=== PATIENT | female | born 1950 | race Caucasian/White ===

== ENCOUNTER 2024-12-15 13:15 | Inpatient (IN) ==
[2025-01-02 12:24] LABS: Basophils # (Auto) 0.05 K/mcL (0.00-0.30); Basophils % (Auto) 0.5 % (0.0-2.0); Eosinophils # (Auto) 0.39 K/mcL (0.00-0.70); Eosinophils % (Auto) 3.7 % (0.0-7.0); Hematocrit 42.2 % (34.1-44.9); Hemoglobin 13.6 g/dL (11.2-15.7); Lymphocytes # (Auto) 2.41 K/mcL (1.50-4.80); Lymphocytes % (Auto) 22.9 % (15.5-49.0); Mean Cell Volume 100.7 fL (80.0-100.0); Mean Corpuscular HGB Conc 32.2 g/dL (31.0-36.0); Mean Platelet Volume 8.3 fL (8.8-12.5); Monocytes # (Auto) 0.83 K/mcL (0.10-0.90); Monocytes % (Auto) 7.9 % (1.0-12.0); Neutrophils % (Auto) 64.5 % (38.0-78.0); Platelet Count 293 K/mcL (140-440); RBC 4.19 M/mcL (3.59-5.38); Red Cell Distribution Width 12.9 % (11.5-14.5); WBC 10.5 K/mcL (4.5-11.0)
[2025-01-02 13:04] LABS: ALT/SGPT 28 U/L (<40); AST/SGOT 24 U/L (<32); Albumin 4.2 gm/dL (3.2-5.2); Albumin/Globulin Ratio 1.6 (1.0-2.3); Alkaline Phosphatase 60 U/L (39-117); Bilirubin,Total 0.3 mg/dL (0.1-1.0); Blood Urea Nitrogen 26 mg/dL (8-23); Calcium 10.1 mg/dL (8.6-10.4); Carbon Dioxide 26 mmol/L (22-30); Chloride 98 mmol/L (96-108); Globulin 2.6 gm/dL (2.2-3.7); Glomerular Filtration Rate 55; Glucose 127 mg/dL (70-105); Potassium 4.5 mmol/L (3.3-5.1); Sodium 134 mmol/L (133-145)
[2025-01-02 14:14] LABS: Appearance,Urine Clear (Clear); Bilirubin,Urine Negative (Negative); Color,Urine Yellow; Glucose,Urine (UA) Negative (Negative); Ketones,Urine Negative (Negative); Leukocyte Esterase,Urine Negative /uL (Negative); Nitrate,Urine Negative (Negative); Protein,Urine Negative (Negative); Urine Blood Negative ery/mcL (Negative); Urobilinogen,Urine Normal
[2025-01-02 14:17] LABS: Estimated Average Glucose(eAG) 108 mg/dL; Hemoglobin A1C 5.4 % Hgb (4.0-6.0)
[2025-01-02 14:28] LABS: INR 0.9 (0.9-1.1); Prothrombin Time 13.4 sec (11.9-14.5)
[2025-01-12] MEDS ORDERED: IPRATROPIUM/ALBUTEROL 3 ML AMPUL.NEB NEB PRN ×2 (09:45→14:41)
[2025-01-12] MEDS: oxyCODONE 10 MG TAB.ER.12H PO SCH (10:27)
[2025-01-12] MEDS: SCOPOLAMINE 1 PATCH PATCH TOPICAL PRN (10:58)
[2025-01-12] MEDS: ACETAMINOPHEN 500 MG TABLET PO SCH (10:59)
[2025-01-12] MEDS: PREGABALIN 75 MG CAPSULE PO SCH (10:59)
[2025-01-12] MEDS: CELECOXIB 200 MG CAPSULE PO SCH (10:59)
[2025-01-12] MEDS ORDERED: KETAMINE 50 MG/ML ML ONE (12:01)
[2025-01-12] MEDS ORDERED: TRANEXAMIC ACID 1,000 MG/10 ML VIAL ONE (12:01)
[2025-01-12] MEDS ORDERED: DEXAMETHASONE 10 MG/ML VIAL ONE (12:01)
[2025-01-12] MEDS ORDERED: GLYCOPYRROLATE 0.2 MG/ML VIAL IV ONE (12:01)
[2025-01-12] MEDS ORDERED: LIDOCAINE 2% PF 5 ML VIAL ONE (12:01)
[2025-01-12] MEDS ORDERED: ONDANSETRON 4 MG/2 ML VIAL ONE (12:01)
[2025-01-12] MEDS ORDERED: PROPOFOL 200 MG/20 ML VIAL IV ONE (12:02)
[2025-01-12] MEDS ORDERED: MAGNESIUM SULFATE 2 GM/50 ML BAG IV ONE (12:07)
[2025-01-12] MEDS: ceFAZolin 2 GM in DEXTROSE 5% IN WATER 50 ML IV SCH (12:49)
[2025-01-12] MEDS ORDERED: PHENYLephrine 1 MG/10 ML SYRINGE (ANEST) ONE (13:15)
[2025-01-12] MEDS ORDERED: ePHEDrine 50 MG/5 ML SYRINGE (ANEST) IV ONE (13:45)
[2025-01-12] MEDS ORDERED: METHOCARBAMOL 1,000 MG/10 ML VIAL IV PRN (14:41)
[2025-01-12] MEDS ORDERED: NALOXONE HCL 0.4 MG/ML VIAL IV PRN (14:41)
[2025-01-12] MEDS ORDERED: fentaNYL 100 MCG/2 ML VIAL IV PRN (14:41)
[2025-01-12] MEDS: 0.9 % SODIUM CHLORIDE 9 ML, KETOROLAC 30 MG, ROPIVACAINE HCL/PF 49.5 ML, EPINEPHrine 0.... IJ SCH (14:41)
[2025-01-12] MEDS ORDERED: HYDROmorphone 0.5 MG/0.5 ML SYRINGE IV PRN (14:41)
[2025-01-12] MEDS ORDERED: ONDANSETRON 4 MG/2 ML VIAL IV PRN ×2 (14:41→14:49)
[2025-01-12] MEDS ORDERED: LACTATED RINGERS 250 ML IV PRN (14:41)
[2025-01-12] MEDS ORDERED: MEPERIDINE 25 MG/ML VIAL IV PRN (14:41)
[2025-01-12] MEDS ORDERED: diphenhydrAMINE 50 MG/ML VIAL IV PRN (14:41)
[2025-01-12] MEDS ORDERED: HYDROmorphone 1 MG/ML SYRINGE IV PRN (14:49)
[2025-01-12] MEDS ORDERED: TEMAZEPAM 15 MG CAPSULE PO PRN (14:49)
[2025-01-12] MEDS ORDERED: MAGNESIUM HYDROXIDE 30 ML ORAL.SUSP PO PRN (14:49)
[2025-01-12] MEDS: TRANEXAMIC ACID 1,000 MG/10 ML VIAL IV ONE (15:26)
[2025-01-12] MEDS: LACTATED RINGERS 1,000 ML IV SCH (16:02)
[2025-01-12] MEDS: 0.9 % SODIUM CHLORIDE 1,000 ML IV SCH (16:02)
[2025-01-12] MEDS ORDERED: ACETAMINOPHEN 325 MG TABLET PO PRN (17:00)
[2025-01-12] MEDS: HYDROcodone/APAP 10/325MG TABLET PO PRN (18:55)
[2025-01-12] MEDS: METOPROLOL TARTRATE 50 MG TABLET PO SCH (20:56)
[2025-01-12] MEDS: LISINOPRIL 20 MG TABLET PO SCH (20:56)
[2025-01-12] MEDS: 0.9 % SODIUM CHLORIDE 10 ML SYRINGE IV SCH (20:56)
[2025-01-12] MEDS: ceFAZolin 1 GM VIAL IV SCH (21:08)
[2025-01-12] MEDS: KETOROLAC 15 MG/ML VIAL IV PRN (21:08)
[2025-01-12] MEDS: ASPIRIN 81 MG TAB.CHEW CHEWED SCH (21:09)
[2025-01-12] MEDS: DOCUSATE SODIUM 100 MG CAPSULE PO SCH (21:09)
[2025-01-13] MEDS: BENZOCAINE/MENTHOL 1 LOZENGE PO PRN (05:46)
[2025-01-13] MEDS: OMEPRAZOLE 20 MG CAPSULE PO SCH (07:10)
[2025-01-13] MEDS: CITALOPRAM 20 MG TABLET PO SCH (08:55)
[2025-01-13] MEDS: FUROSEMIDE 20 MG TABLET PO SCH (08:55)
== END 2025-01-13 14:35 | disposition home or self-care (01) | DRG 468 ==
LOC: EDSTATUS 13:15 → MEDSUR 01-12 09:26
PROVIDERS: ADMIT Orthopaedic Surgery; ATTEND Orthopaedic Surgery